=== PATIENT | male | born 1975 | race African-American/Black ===

== ENCOUNTER 2025-06-22 09:33 | Emergency (ER) | payer OTHER ==
[2025-06-22 09:43] VITALS: TEMP 98.8
[2025-06-22] MEDS ORDERED: NORCO 5/325 MG ONE (10:32)
[2025-06-22] MEDS: NORCO 5/325 MG PO ONE (10:32)
--- NOTE | 2025-06-22 10:32 | ERPHSYRPT ---
- History of Present Illness Time Seen by Provider: 06/22/25 09:41 Source: patient Patient Subjective Stated Complaint: Pt states "I was unloading a pallet and it started to fall and I tried to stop it and was pushed away and the contents fell on my and I hit the ground. My mid back hurts." Triage Nursing Assessment: Pt presented alert and oriented X 3, skin pwd. Pt ambulates with an upright steady gait, able to speak in clear full sentences. Pt has tenderness noted to left of mid back, no bruising or swelling noted. Physician History: This is a 49-year-old male who was at work and he states a large pallet started sliding into him and about to come down on it. Patient states he instinctively reached out to try to push the pallet back and had instant pain in the thoracolumbar left side paraspinal region. He did not get struck by the pallet nor was he crushed or trapped. Patient does not routinely have back pain per patient. No focal neurologic changes. No bowel or bladder changes. Allergies/Adverse Reactions: No Known Drug Allergies Allergy (Verified 06/22/25 09:43) Home Medications: Insulin Glargine,Hum.rec.anlog [Lantus] 14 unit SQ DAILY 06/22/25 [History] Metformin HCl 500 mg [Glucophage 500 MG] 500 mg PO BIDWM 06/22/25 [History] Hx Tetanus, Diphtheria Vaccination/Date Given: No Hx Influenza Vaccination/Date Given: No Hx Pneumococcal Vaccination/Date Given: No Immunizations Up to Date: No Travel Risk - International Travel Have you traveled outside of the country in past 3 weeks: No - Emerging Infectious Disease Are you exhibiting symptoms associated with any current EIDs: No - Review of Systems All Other Systems: Reviewed and Negative (As per HPI otherwise negative) - Past Medical History Pertinent Past Medical History: Yes Neurological History: No Pertinent History ENT History: No Pertinent History Cardiac History: No Pertinent History Respiratory History: No Pertinent History Endocrine Medical History: Diabetes Type II Musculoskeletal History: No Pertinent History GI Medical History: No Pertinent History History: No Pertinent History Psycho-Social History: No Pertinent History Male Reproductive Disorders: No Pertinent History - Past Surgical History Past Surgical History: No - Social History Smoking Status: Current every day smoker How long have you smoked: years Exposure to second hand smoke: No Drug Use: none - Social Determinants of Health Will the patient participate in the screening: Declined to provide - Nursing Vital Signs Nursing Vital Signs: Initial Vital Signs Temperature 98.8 F 06/22/25 09:35 Pulse Rate 78 06/22/25 09:35 Respiratory Rate 18 06/22/25 09:35 Blood Pressure 147/91 06/22/25 09:35 O2 Sat by Pulse Oximetry 97 06/22/25 09:35 Pain Scale Pain Intensity [Left Back] 4 Pain Intensity 2 - Physical Exam SpO2: 97 Comments: 06/22/25 10:31 General: Well-nourished well-developed. No apparent distress. HEENT: Normocephalic atraumatic no obvious facial or neck deformity or injury. Neck: Supple. No deformity or mass noted. CV: RRR NL Perfusion. No edema Resp: No Respiratory distress or adventitious breath sounds Abd: ND SNT MSK: No deformity or TTP. Spine without step-off or deformity. No pain in the cervical region. Pain is mostly in the thoracolumbar region left paraspinal region. Neuro: Alert and Sabine x4. No gross focal neurologic changes. No incontinence. No sensation changes in the perineal region. No clinical evidence of cauda equina type symptomatology. Psych: No SI, HI or grave disability Ordered Tests: Active Orders 24 hr Category Date Time Status LUMBAR SPINE W/O [CT] Stat Exams 06/22/25 10:27 Completed THORACIC SPINE W/O CONTRAST [CT] Stat Exams 06/22/25 10:24 Completed Medication Summary Discontinued Medications Generic Name Dose Route Start Last Admin Trade Name Ge PRN Reason Stop Dose Admin Hydrocodone Bitart/Acetaminophen 2 tab 06/22/25 10:28 06/22/25 10:32 Hydrocodone/Apap 5/325 1 Tab Tablet PO 06/22/25 10:29 2 tab STAT ONE Administration Hydrocodone Bitart/Acetaminophen Confirm 06/22/25 10:32 Hydrocodone/Apap 5/325 1 Tab Tablet Administered 06/22/25 10:33 Dose 2 tab .ROUTE .STK-MED ONE Dexamethasone Sodium Phosphate 10 mg 06/22/25 10:28 06/22/25 10:36 Dexamethasone Sod Phosphate 10 Mg/Ml PO 06/22/25 10:29 10 mg STAT ONE Administration Dexamethasone Sodium Phosphate Confirm 06/22/25 10:34 Dexamethasone Sod Phosphate 10 Mg/Ml Administered 06/22/25 10:35 Dose 10 mg .ROUTE .STK-MED ONE Diazepam 5 mg 06/22/25 10:29 06/22/25 10:35 Diazepam 5 Mg Tablet PO 06/22/25 10:30 5 mg STAT ONE Administration Diazepam Confirm 06/22/25 10:35 Diazepam 5 Mg Tablet Administered 06/22/25 10:36 Dose 5 mg .ROUTE .STK-MED ONE Ibuprofen 800 mg 06/22/25 10:29 06/22/25 10:36 Ibuprofen 400 Mg Tablet PO 06/22/25 10:30 800 mg STAT ONE Administration Ibuprofen Confirm 06/22/25 10:34 Ibuprofen 400 Mg Tablet Administered 06/22/25 10:35 Dose 800 mg .ROUTE .STK-MED ONE - Progress Progress Note: 06/22/25 12:34 Patient doing well. Chronic findings on CT. He is not painful in the area noted on the lumbar CT of concern. He down notes however his work wants a tox screen. I note that patient received Valium and hydrocodone and will have a positive test. This will be noted on the order test, but this was not requested initially as he stated he did not need a toxicology screen. The patient's condition was discussed with themselves and/or family members in great detail. Precautions are given and need to return or call 911 immediately for any changes or worsening are discussed. Instructions on patient's condition and noting that conditions can change or worsen and that diagnosis are presumptive and can evolve are discussed. All questions were answered. All concerns addressed at this time - Departure Departure Disposition: Home Clinical Impression: Strain of mid-back Qualifiers: Encounter type: initial encounter Qualified Code(s): S29.012A - Strain of muscle and tendon of back wall of thorax, initial encounter Condition: Stable Critical Care Time: No Referrals: DOCTOR,NO FAMILY [Primary Care Provider, UNKNOWN] - Follow up/PCP as directed Instructions: Low Back Pain (DC) Additional Instructions: Cleared to go back to work as tolerated. You have been evaluated for an emergency medical condition. At this time, given the current history and events presented, the examination conducted and any possible testing you may have had, you have been given a presumptive diagnosis based on the current information is obtained. Your discharge diagnosis is presumptive and not necessarily definitive. Medical conditions present in various stages very often without all the symptoms or findings described in medical literature. Other symptoms, concerns or conditions may arise and your diagnoses may evolve or change and/or your condition could potentially worsen after the time of disposition or discharge. You have been given a presumptive diagnosis and your condition appears to be stable, but your medical issues can change or worsen. If there is worsening of your condition including difficulty breathing, swallowing, speaking, chest pain or pressure, intractable vomiting, worsening or changing mental status, numbness, tingling or weakness of your body or arms or legs, thoughts or plans of harming yourself or others, or any other concerns, call 911 and/or return immediately to the closest emergency department. It is important you follow-up with your doctor on the next business day. Call your doctor, or the referral provided if you do not have a doctor, when they open to schedule a follow-up appointment in the next 1 or latest 2 days. Please refer to the attached sheet. If you do not have primary care doctor, you can call the [facility] referral line at [phone]. Return immediately if your symptoms worsen or if you are unable to obtain further care. My team and I thank you for choosing the [facility] Emergency Department emergency healthcare needs. We wish you a speedy recovery. Very respectfully, Dr. Carrol Heck M.D. [place] [employer] Board-certified Emergency Physician Prescriptions: Cyclobenzaprine HCl 10 mg [Cyclobenzaprine 10 MG] 10 mg PO TID PRN #15 tablet PRN Reason: Pain Methylprednisolone Packet [Medrol Dosepack] 0 mg PO UD #1 packet
[2025-06-22] MEDS ORDERED: DECADRON 10MG INJ. ONE (10:34)
[2025-06-22] MEDS ORDERED: MOTRIN 400 MG ONE (10:34)
[2025-06-22] MEDS: Valium 5 MG PO ONE (10:35)
[2025-06-22] MEDS ORDERED: Valium 5 MG ONE (10:35)
[2025-06-22] MEDS: MOTRIN 400 MG PO ONE (10:36)
[2025-06-22] MEDS: DECADRON 10MG INJ. PO ONE (10:36)
[2025-06-22 12:03] VITALS: PULSE 68; RESP 15
--- NOTE | 2025-06-22 12:04 | XRAY ---
Indication: Trauma. Multiple contiguous axial images obtained through the thoracic spine. Sagittal and coronal reformatted images obtained. Comparison: None Minimal multilevel anterior endplate spurring, greatest T9-T10. Otherwise normal bones, articulation, and visualized noncontrasted soft tissues. Impression: Minimal multilevel endplate spurring. Otherwise normal CT thoracic spine.
--- NOTE | 2025-06-22 12:06 | XRAY ---
Indication: Trauma. Multiple contiguous axial images obtained through the lumbar spine. Sagittal and coronal reformatted images obtained. Comparison: None Mild L4-S1 broad-based disc bulge with degenerative vacuum disc phenomena, L5-S1 disc space narrowing, and minimal aortoiliac calcifications. Facets are symmetric. Otherwise normal bones, articulation, and visualized noncontrasted soft tissues. Impression: L4-S1 degenerative disc disease and arteriosclerotic disease. Otherwise normal CT lumbar spine.
[2025-06-22 12:41] VITALS: O2SAT 97
[2025-06-22 13:02] VITALS: BP 141/98
== END 2025-06-22 13:40 | disposition home or self-care (01) ==
LOC: ED 09:33
DX: S29.012A Strain of muscle and tendon of back wall of thorax, initial encounter (principal); W18.39XA Other fall on same level, initial encounter; W20.8XXA Other cause of strike by thrown, projected or falling object, initial encounter; Y92.512 Supermarket, store or market as the place of occurrence of the external cause; Y99.0 Civilian activity done for income or pay; E11.9 Type 2 diabetes mellitus without complications; Z79.52 Long term (current) use of systemic steroids; Z79.4 Long term (current) use of insulin; Z79.84 Long term (current) use of oral hypoglycemic drugs; Z79.899 Other long term (current) drug therapy; Z72.0 Tobacco use